=== PATIENT | male | born 1940 | race African-American/Black ===

== ENCOUNTER 2018-01-31 09:32 | Emergency (ER) | payer MEDICARE ==
[~2018-01-31 09:32] MED LIST: Iopamidol 370 76% 100 ML VIAL ONE
[2018-01-31 10:04] LABS: #Basophils 0.1 thou/uL (0.0-0.2); #Monocytes 0.8 thou/uL (0.11-0.59); #Neutrophils 2.4 thou/uL (1.40-6.50); %Basophils 1.9 % (0.0-1.0); %Eosinophils 0.8 % (0.0-10.0); %Lymphocytes 37.9 % (21.0-51.0); %Monocytes 14.6 % (0.0-10.0); %Neutrophils 44.7 % (42.0-75.0); Mean Corpuscular HGB CONC 34.3 g/dL (32.0-36.0); Mean Corpuscular Hemoglobin 33.5 pg (27.0-31.0); Mean Corpuscular Volume 97.8 fl (80.0-94.0); Platelet Count 132 thou/uL (130-400); RBC Distribution Width 13.4 % (11.5-14.5); Red Blood Cell (RBC) Count 4.46 mill/uL (4.70-6.10); White Blood Cell (WBC) Count 5.3 thou/uL (4.8-10.8)
[2018-01-31 10:11] LABS: INR-International Normal Ratio 1.1; PTT 30.8 SEC (22.9-36.1); Prothrombin Time 14.1 SEC (12.0-14.7)
[2018-01-31 10:20] LABS: ALT (SGPT) Less than 6 U/L (8-55); AST (SGOT) 15 U/L (5-34); Albumin 3.9 g/dL (3.4-4.8); Alkaline Phosphatase 124 U/L (40-150); Anion Gap 14 mmol/L (10-20); BUN (Urea Nitrogen) 14 mg/dL (8.4-25.7); Bilirubin, Total 0.6 mg/dL (0.2-1.2); CK (CPK) 58 U/L (30-200); Calc. Creatinine Clearance 0 mL/min (70-130); Calcium 10.1 mg/dL (7.8-10.44); Carbon Dioxide 26 mmol/L (23-31); Chloride 106 mmol/L (98-107); Estimated GFR-MDRD 75; Globulin 4.4 g/dL (2.4-3.5); Glucose 104 mg/dL (83-110); Lipase 20 U/L (8-78); Protein, Total 8.3 g/dL (5.8-8.1); Sodium 142 mmol/L (136-145)
[2018-01-31 10:21] LABS: Acetaminophen Less than 6.0 mcg/mL (10.0-30.0); Alcohol Less than 10 mg/dL (Less than 10); CKMB 1.4 ng/mL (0-6.6); Salicylate Less than 8.0 mg/dL (15.0-30.0); Troponin I 0.024 ng/mL (< 0.028)
[2018-01-31] MEDS ORDERED: Acetaminophen 500 MG TAB ONE (10:53)
--- NOTE | 2018-01-31 12:35 | CT ---
CT THORAX NONCONTRAST CT ABDOMEN NONCONTRAST: Date: 01/31/18 Time: 1020 hours HISTORY: 77-year-old male with abdominal bruit and back pain. Rule out aortic dissection. TECHNIQUE: According to the electrical engineering technologist, Reported allergy, with family adamant that he not receive IV con trast. Axial scan performed without IV or oral contrast, from slightly superior to the top of the aortic arch to the acetabular roofs. Coronal and sagittal reconstructions. FINDINGS: Lung apices are not included on the scan. There are multiple small to moderate size bullae in the sub pleural regions, especially in the upper lung zones. There is a small left pleural effusion. There is a very irregularly shaped pulmonary lesion in the posterior segment of the right upper lobe. There i s a small left pleural effusion. Right lower lobe, and visualized portions of left upper lobe, and ri ght middle lobe, are grossly clear. No thoracic aortic aneurysm. Calcification of LAD and proximal RCA. No cardiomegaly. No pericardial e ffusion. Multiple mildly enlarged mediastinal lymph nodes, nonspecific. No pneumothorax identified. 1 .5 cm hepatic cyst in left lobe near hepatic hilum. Heavy atherosclerotic calcification of abdominal aorta and iliac arteries. 3.2 cm fusiform dilation of infrarenal abdominal aorta at L3 level. Multipl e bilateral renal calculi, ranging from a few millimeters up to 1 cm. No hydronephrosis. 5 cm exophyt ic round cyst protruding from lower pole of right kidney. No retroperitoneal hematoma or free fluid i dentified in the abdominal cavity. A few tiny calcified gallstones. No adrenal mass. Atrophic pancrea s. No splenomegaly. No small bowel dilation. Visualized upper and mid portions of colon demonstrate n o acute diverticulitis. Sigmoid colon was not included on the scan. No pneumoperitoneum. Ventral flow ing osteophytes throughout the thoracic spine and lumbar spine. There is focal aneurysm of the proxim al aspect of the right common iliac artery, up to 2.2 cm. IMPRESSION: 1. Small left pleural effusion. 2. Irregularly shaped stellate lesion in posterior segment of right upper lobe. Uncertain whether th is represents pulmonary scar, subsegmental atelectasis, or pneumonia. Lung cancer is less likely, but not excluded. Follow-up is recommended. 3. Infrarenal fusiform 3.2 cm abdominal aortic aneurysm. 4. It is not possible to evaluate for aortic dissection without IV contrast. 5. Nonspecific mediastinal lymphadenopathy. 6. Bilateral nephrolithiasis: Multiple bilateral renal calculi. 7. Cholelithiasis. 8. Right common iliac artery aneurysm. 9. DISH (diffuse idiopathic skeletal hyperostosis). POS: [facility]
--- NOTE | 2018-01-31 15:15 | ADD-ER ---
ADDENDUM DATE OF SERVICE: 01/31/2018 Please refer to the patient's electronic medical record for further details of his visit. In summary, the patient presents to the Emergency Department complaining of intermittent right-sided low back pain. This has been going on for several months now, and he reports that at rest he has no pain and only has pain when he is moving or walking. He has not had any bowel or bladder changes to suggest cauda equina syndrome. There is no lower extremity weakness or numbness. He has no signific ant risk factors for spinal epidural abscess. On exam, he does have a notable abdominal bruit, raisi ng concern for aortic pathology which was revealed with CT scan imaging. Unfortunately, the patient cannot tolerate IV contrast, thus the imaging is limited in its scope. Additionally, the patient was noted to be significantly bradycardic, though he is asymptomatic with this. He was found to be in c omplete heart block. Additional findings of concern are a pulmonary lesion and a right iliac artery aneurysm. The patient is aware of the possibility of cancer, though the radiologist reports this is unlikely, I am concerned by his clinical appearance of general cachexia and muscle wasting. Addition ally, he is aware of his complete heart block and I recommended at length and extensively to him and to his family that he be admitted to the hospital for further evaluation and treatments including lik liliam pacemaker placement. I stressed to him the risks involved of going home, and had repeated conver sations with him and his family about the unstable nature of his complete heart block and the consequ ences of further deterioration. In spite of well understood risks of or permanent disability, the patient chooses to go home. He is awake, alert, oriented, and clearly understands the risks invo lved as well as the significance of his current diagnoses. He voiced understanding of my concerns, a nd continues to refuse to leave. I stressed to him that should he change his mind at any time, he ma y return. I also discussed with his daughter at the bedside that they should return as soon as possi ble if she can convince him of his need for treatment of these conditions. She also verbalized under standing. The patient chooses to leave against medical advice despite his significant medical proces ses and serious risk of further deterioration. Referrals were given to the patient for outpatient co nsultation in an attempt to provide as close followup as possible given his refusal for inpatient fawad atment.
== END 2018-01-31 11:55 | disposition left against medical advice (07) ==
LOC: SCSER 09:32
DX: I44.2 Atrioventricular block, complete (principal); I71.4 Abdominal aortic aneurysm, without rupture; I72.3 Aneurysm of iliac artery; J98.4 Other disorders of lung; I10 Essential (primary) hypertension; F17.210 Nicotine dependence, cigarettes, uncomplicated
CPT/HCPCS: 71275; 80053; 80307; 82553; 83605; 83690; 83880; 84443; 84484; 85025; 85610; 85730; 93005; 96360